=== PATIENT | female | born 2000 | race Hispanic/Latino ===

== ENCOUNTER 2018-01-27 01:57 | Emergency (ER) | payer MEDICAID ==
[2018-01-27] MEDS ORDERED: ACETAMINOPHEN 325 MG TAB ONE (02:54)
[2018-01-27 03:14] LABS: APPEARANCE,URINE Clear (CLEAR); BILIRUBIN,URINE Negative (NEGATIVE); COLOR,URINE Yellow (YELLOW); GLUCOSE, URINE (UA) Negative (NEGATIVE); KETONES,URINE Negative (NEGATIVE); LEUKOCYTE ESTERASE ,URINE Negative (NEGATIVE); NITRATE,URINE Negative (NEGATIVE); OCCULT BLOOD,URINE Negative (NEGATIVE); PROTEIN,URINE Negative (NEGATIVE)
[2018-01-27 03:21] LABS: RAPID GROUP A STREP NEGATIVE (NEGATIVE)
[2018-01-27] MEDS ORDERED: TRAMADOL HCL 50 MG TABLET ONE (03:42)
[2018-01-27 04:15] LABS: CREATININE 0.5 mg/dL (0.5-1.5); POTASSIUM 3.6 mmol/L (3.5-5.1)
[2018-01-27 04:16] LABS: BASOPHILS % (AUTO) 0.2 % (0.0-5.0); EOSINOPHILS % (AUTO) 2.7 % (0.0-8.0); HEMATOCRIT 36.2 % (36-48); LYMPHOCYTES % (AUTO) 32.3 % (21.0-51.0); MEAN CORPUSCULAR HEMOGLOBIN 26.8 pg (27.0-33.0); MEAN CORPUSCULAR VOLUME 78.9 fL (80-100); MONOCYTES % (AUTO) 7.6 % (3.0-13.0); NEUTROPHILS % (AUTO) 57.2 % (40.0-77.0); PLATELET COUNT (AUTO) 463 K/uL (130-400); RED BLOOD CELL COUNT(AUTO) 4.58 MIL/uL (4.00-5.50); RED CELL DISTRIBUTION WIDTH 13.7 % (11.0-15.5); WHITE BLOOD COUNT (AUTO) 16.2 K/uL (4.8-10.8)
[2018-01-27] MEDS ORDERED: KETOROLAC TROMETHAMINE 30MG/ML ONE (05:40)
== END 2018-01-27 06:21 | disposition home or self-care (01) ==
LOC: EDH 01:57
DX: D72.829 Elevated white blood cell count, unspecified (principal); Z87.442 Personal history of urinary calculi
CPT/HCPCS: 36415; 74176; 80048; 81003; 81025; 85025; 87804 ×2; 87880; 96372; 99285; J1885

== ENCOUNTER 2018-10-19 18:00 | Emergency (ER) | payer MEDICAID ==
[2018-10-19 19:00] LABS: BILIRUBIN,URINE Negative (NEGATIVE); COLOR,URINE Yellow (YELLOW); GLUCOSE, URINE (UA) Negative (NEGATIVE); KETONES,URINE Negative (NEGATIVE); LEUKOCYTE ESTERASE ,URINE Negative (NEGATIVE); NITRATE,URINE Negative (NEGATIVE); OCCULT BLOOD,URINE Negative (NEGATIVE); PROTEIN,URINE POS 1+ (NEGATIVE)
[2018-10-19] MEDS ORDERED: ONDANSETRON ODT 4 MG TAB ONE (19:00)
[2018-10-19 19:10] LABS: AMPHET/METH SCREEN,URINE NEGATIVE (NEGATIVE); BARBITURATE SCREEN, URINE NEGATIVE (NEGATIVE); BENZODIAZEPINES SCREEN,URINE NEGATIVE (NEGATIVE); CANNABINOID SCREEN,URINE POSITIVE (NEGATIVE); COCAINE SCREEN,URINE NEGATIVE (NEGATIVE); OPIATE SCREEN,URINE NEGATIVE (NEGATIVE); PHENCYCLIDINE SCREEN,URINE NEGATIVE (NEGATIVE)
[2018-10-19 19:13] LABS: APPEARANCE,URINE SLIGHTLY CLOUDY (CLEAR)
[2018-10-19 19:20] LABS: BACTERIA,URINE Few /HPF (None Seen); MUCUS,URINE Few LPF (None Seen); RBC,URINE 0-1 /HPF (0-1); SQUAMOUS EPITHELIAL CELL,UR Few /HPF (0-2); WBC,URINE 0-1 /HPF (0-1)
== END 2018-10-19 20:09 | disposition home or self-care (01) ==
LOC: EDH 18:00
DX: R11.10 Vomiting, unspecified (principal); F10.99 Alcohol use, unspecified with unspecified alcohol-induced disorder; F32.9 Major depressive disorder, single episode, unspecified
CPT/HCPCS: 80305; 81001; 81025

== ENCOUNTER 2020-10-19 01:54 | Emergency (ER) | payer MEDICAID ==
[2020-10-19] MEDS ORDERED: ONDANSETRON ODT 4 MG TAB ONE (02:54)
[2020-10-19] MEDS ORDERED: LORAZEPAM 2 MG/ML 1 ML VIAL ONE (02:55)
== END 2020-10-19 06:36 | disposition home or self-care (01) ==
LOC: EDH 01:54
DX: F41.0 Panic disorder [episodic paroxysmal anxiety] (principal); F32.9 Major depressive disorder, single episode, unspecified
CPT/HCPCS: 93005; 96372; 99283; J2060

== ENCOUNTER 2020-10-28 23:17 | Emergency (ER) | payer MEDICAID ==
[2020-10-29] MEDS ORDERED: ONDANSETRON 4 MG TABLET ONE (00:32)
[2020-10-29] MEDS ORDERED: PANTOPRAZOLE SODIUM 40 MG TABLET.DR ONE (00:33)
[2020-10-29] MEDS ORDERED: FAMOTIDINE 20MG TAB 20 MG TAB ONE (00:33)
[2020-10-29] MEDS ORDERED: METOCLOPRAMIDE 10 MG TABLET ONE (00:33)
== END 2020-10-29 00:47 | disposition home or self-care (01) ==
LOC: EDH 23:17
DX: F43.0 Acute stress reaction (principal); R11.10 Vomiting, unspecified; F32.9 Major depressive disorder, single episode, unspecified; F41.9 Anxiety disorder, unspecified
CPT/HCPCS: 99284; Q0162

== ENCOUNTER 2021-08-19 16:24 | Emergency (ER) | payer MEDICAID ==
[~2021-08-19] VITALS: Ht 137.2 cm; Wt 78.9 kg
[2021-08-19 16:27] VITALS: BP 128/57
[2021-08-19 17:12] LABS: APPEARANCE,URINE Clear (CLEAR); BILIRUBIN,URINE Negative (NEGATIVE); COLOR,URINE Yellow (YELLOW); GLUCOSE, URINE (UA) Negative (NEGATIVE); KETONES,URINE Negative (NEGATIVE); LEUKOCYTE ESTERASE ,URINE Negative (NEGATIVE); NITRATE,URINE Negative (NEGATIVE); OCCULT BLOOD,URINE Negative (NEGATIVE); PH,URINE 5.5 (5.0-8.0); PROTEIN,URINE Negative (NEGATIVE); UROBILINOGEN,URINE 0.2 mg/dL (0.2-1.0)
[2021-08-19 17:23] LABS: BASOPHILS % (AUTO) 0.2 % (0.0-5.0); EOSINOPHILS % (AUTO) 1.3 % (0.0-8.0); HEMATOCRIT 34.7 % (36-48); LYMPHOCYTES % (AUTO) 24.1 % (21.0-51.0); MEAN CORPUSCULAR HEMOGLOBIN 26.6 pg (27.0-33.0); MEAN CORPUSCULAR HGB CONC 32.9 g/dL (32.0-36.0); MEAN CORPUSCULAR VOLUME 80.9 fL (79-99); MONOCYTES % (AUTO) 6.8 % (3.0-13.0); NEUTROPHILS % (AUTO) 67.1 % (40.0-77.0); PLATELET COUNT (AUTO) 401 K/uL (130-400); RED BLOOD CELL COUNT(AUTO) 4.29 MIL/uL (4.00-5.50); RED CELL DISTRIBUTION WIDTH 14.2 % (11.0-15.5); WHITE BLOOD COUNT (AUTO) 15.4 K/uL (4.8-10.8)
[2021-08-19] MEDS ORDERED: KETOROLAC 30MG VIAL (30MG/ML) IM ONE (17:30)
[2021-08-19 17:48] LABS: CREATININE 0.5 mg/dL (0.5-1.5); POTASSIUM 4.4 mmol/L (3.5-5.1)
[2021-08-19 17:53] LABS: ALBUMIN 3.2 g/dL (3.5-5.0); BILIRUBIN,TOTAL 0.1 mg/dL (0.2-1.0); TOTAL PROTEIN, SERUM 7.2 g/dL (6.0-8.3)
[2021-08-19] MEDS ORDERED: BISA-72 PO (20:00)
[2021-08-19] MEDS ORDERED: CEPH500C2 PO (20:00)
[2021-08-19] MEDS ORDERED: CYCL5TAB PO (20:00)
[2021-08-19] MEDS ORDERED: ACET1TAB25 PO (20:00)
== END 2021-08-19 20:17 | disposition home or self-care (01) ==
LOC: EDH 16:24
DX: N39.0 Urinary tract infection, site not specified (principal); D72.829 Elevated white blood cell count, unspecified; N28.9 Disorder of kidney and ureter, unspecified; K59.00 Constipation, unspecified; Z79.899 Other long term (current) drug therapy; Z79.1 Long term (current) use of non-steroidal anti-inflammatories (NSAID)
CPT/HCPCS: 36415; 71046; 74176; 80053; 81003; 81025; 83690; 85025; 96372; 99285; J1885

== ENCOUNTER 2024-05-26 00:15 | Emergency (ER) | payer MEDICAID ==
[~2024-05-26] VITALS: Ht 137.2 cm; Wt 90.3 kg
[~2024-05-26 00:15] MED LIST: ACET-2079 PO; BISA-72 PO; CEPH500C2 PO; CYCL5TAB PO
[2024-05-26 01:57] LABS: BASOPHILS # (AUTO) 0.04 K/uL (0.00-0.20); BASOPHILS % (AUTO) 0.3 % (0.0-5.0); EOSINOPHILS # (AUTO) 0.18 K/uL (0.00-0.70); EOSINOPHILS % (AUTO) 1.4 % (0.0-8.0); HEMATOCRIT 35.3 % (36-48); IMMATURE GRANULOCYTE ABSOLUTE 0.06 K/uL (0-1); LYMPHOCYTES # (AUTO) 4.7 K/uL (1.0-4.8); LYMPHOCYTES % (AUTO) 36.1 % (21.0-51.0); MEAN CORPUSCULAR HEMOGLOBIN 26.9 pg (27.0-33.0); MEAN CORPUSCULAR HGB CONC 32.6 g/dL (32.0-36.0); MEAN CORPUSCULAR VOLUME 82.7 fL (79-99); MONOCYTES % (AUTO) 7.6 % (3.0-13.0); NEUTROPHILS % (AUTO) 54.1 % (40.0-77.0); PLATELET COUNT (AUTO) 377 K/uL (130-400); RED BLOOD CELL COUNT(AUTO) 4.27 MIL/uL (4.00-5.50); RED CELL DISTRIBUTION WIDTH 15.1 % (11.0-15.5); WHITE BLOOD COUNT (AUTO) 12.9 K/uL (4.8-10.8)
[2024-05-26 02:04] LABS: CREATININE 0.5 mg/dL (0.5-1.0); POTASSIUM 4.3 mmol/L (3.5-5.1)
[2024-05-26 02:43] LABS: APPEARANCE,URINE CLEAR (CLEAR); BILIRUBIN,URINE NEGATIVE (NEGATIVE); COLOR,URINE COLORLESS (YELLOW); GLUCOSE, URINE (UA) NEGATIVE (NEGATIVE); KETONES,URINE NEGATIVE (NEGATIVE); LEUKOCYTE ESTERASE ,URINE NEGATIVE Leu/uL (NEGATIVE); NITRATE,URINE NEGATIVE (NEGATIVE); OCCULT BLOOD,URINE NEGATIVE (NEGATIVE); PH,URINE 7.5 (5.0-8.0); PROTEIN,URINE NEGATIVE (NEGATIVE); UROBILINOGEN,URINE 0.2 mg/dL (0.2-1.0)
[2024-05-26 02:48] LABS: RBC,URINE 0-1 /HPF (0-1); SQUAMOUS EPITHELIAL CELL,UR FEW /HPF (0-2); WBC,URINE 0-1 /HPF (0-1)
[2024-05-26 03:22] VITALS: BP 112/62; PULSE 89; RESP 18; O2SAT 98
== END 2024-05-26 03:24 | disposition home or self-care (01) ==
LOC: EDH 00:15
DX: O20.0 Threatened abortion (principal); Z3A.01 Less than 8 weeks gestation of pregnancy; Z79.899 Other long term (current) drug therapy
CPT/HCPCS: 36415; 76801; 80048; 81001; 84702; 84703; 85025

== ENCOUNTER 2024-06-21 16:28 | Emergency (ER) | payer MEDICAID ==
[~2024-06-21] VITALS: Ht 142.2 cm; Wt 84.5 kg
[2024-06-21 17:45] LABS: BASOPHILS # (AUTO) 0.02 K/uL (0.00-0.20); BASOPHILS % (AUTO) 0.2 % (0.0-5.0); EOSINOPHILS # (AUTO) 0.17 K/uL (0.00-0.70); EOSINOPHILS % (AUTO) 1.3 % (0.0-8.0); HEMATOCRIT 36.3 % (36-48); IMMATURE GRANULOCYTE ABSOLUTE 0.05 K/uL (0-1); LYMPHOCYTES # (AUTO) 3.7 K/uL (1.0-4.8); LYMPHOCYTES % (AUTO) 29.5 % (21.0-51.0); MEAN CORPUSCULAR HEMOGLOBIN 26.5 pg (27.0-33.0); MEAN CORPUSCULAR HGB CONC 33.1 g/dL (32.0-36.0); MEAN CORPUSCULAR VOLUME 80.1 fL (79-99); MONOCYTES % (AUTO) 7.5 % (3.0-13.0); NEUTROPHILS # (AUTO) 7.7 K/uL (1.8-7.7); NEUTROPHILS % (AUTO) 61.1 % (40.0-77.0); PLATELET COUNT (AUTO) 423 K/uL (130-400); RED BLOOD CELL COUNT(AUTO) 4.53 MIL/uL (4.00-5.50); WHITE BLOOD COUNT (AUTO) 12.6 K/uL (4.8-10.8)
[2024-06-21 17:48] LABS: CREATININE 0.5 mg/dL (0.5-1.0); POTASSIUM 3.8 mmol/L (3.5-5.1)
[2024-06-21] MEDS: 0.9%NACL 1000ML 1,000 ML IV ONE (18:00)
[2024-06-21] MEDS: ONDANSETRON 4MG INJ IVP ONE (18:00)
[2024-06-21 19:25] LABS: APPEARANCE,URINE CLOUDY (CLEAR); BILIRUBIN,URINE NEGATIVE (NEGATIVE); COLOR,URINE LIGHT-YELLOW (YELLOW); GLUCOSE, URINE (UA) NEGATIVE (NEGATIVE); KETONES,URINE >=80 mg/dL (NEGATIVE); LEUKOCYTE ESTERASE ,URINE 250 Leu/uL (NEGATIVE); NITRATE,URINE NEGATIVE (NEGATIVE); OCCULT BLOOD,URINE NEGATIVE (NEGATIVE); PH,URINE 6.5 (5.0-8.0); PROTEIN,URINE NEGATIVE (NEGATIVE); UROBILINOGEN,URINE 0.2 mg/dL (0.2-1.0)
[2024-06-21 19:26] LABS: ADD UA MICROSCOPIC YES
[2024-06-21 19:28] LABS: BACTERIA,URINE RARE /HPF (None Seen); MUCUS,URINE RARE LPF (None Seen); SQUAMOUS EPITHELIAL CELL,UR FEW /HPF (0-2)
[2024-06-21] MEDS ORDERED: AMOX1TAB16 PO (19:41)
[2024-06-21] MEDS ORDERED: ONDA-243 PO (19:41)
[2024-06-21] MEDS: AMOX/CLAV 875/125MG TAB PO ONE (20:10)
[2024-06-21 20:18] VITALS: BP 136/81; PULSE 80; RESP 18; TEMP 98.2; O2SAT 100
== END 2024-06-21 20:25 | disposition home or self-care (01) ==
LOC: EDH 16:28
DX: O21.0 Mild hyperemesis gravidarum (principal); O26.891 Other specified pregnancy related conditions, first trimester; E86.0 Dehydration; O23.11 Infections of bladder in pregnancy, first trimester; N30.00 Acute cystitis without hematuria; Z79.2 Long term (current) use of antibiotics; Z79.899 Other long term (current) drug therapy; Z3A.09 9 weeks gestation of pregnancy
CPT/HCPCS: 99283; 96374; 96361; 80048; 85025; 87086; 81001; 36415; J7030; J2405

== ENCOUNTER 2024-07-17 17:57 | Emergency (ER) | payer MEDICAID ==
[~2024-07-17] VITALS: Ht 142.2 cm; Wt 84.4 kg
[~2024-07-17 17:57] MED LIST changes: +AMOX1TAB16 PO; +ONDA-243 PO
[2024-07-17 19:23] LABS: BASOPHILS # (AUTO) 0.03 K/uL (0.00-0.20); BASOPHILS % (AUTO) 0.2 % (0.0-5.0); EOSINOPHILS # (AUTO) 0.27 K/uL (0.00-0.70); EOSINOPHILS % (AUTO) 2.2 % (0.0-8.0); HEMATOCRIT 34.4 % (36-48); IMMATURE GRANULOCYTE ABSOLUTE 0.06 K/uL (0-1); LYMPHOCYTES # (AUTO) 3.2 K/uL (1.0-4.8); LYMPHOCYTES % (AUTO) 25.9 % (21.0-51.0); MEAN CORPUSCULAR HEMOGLOBIN 26.7 pg (27.0-33.0); MEAN CORPUSCULAR HGB CONC 32.8 g/dL (32.0-36.0); MEAN CORPUSCULAR VOLUME 81.3 fL (79-99); MONOCYTES # (AUTO) 0.9 K/uL (0.1-1.0); MONOCYTES % (AUTO) 7.4 % (3.0-13.0); NEUTROPHILS # (AUTO) 7.8 K/uL (1.8-7.7); NEUTROPHILS % (AUTO) 63.8 % (40.0-77.0); PLATELET COUNT (AUTO) 418 K/uL (130-400); RED BLOOD CELL COUNT(AUTO) 4.23 MIL/uL (4.00-5.50); RED CELL DISTRIBUTION WIDTH 14.1 % (11.0-15.5); WHITE BLOOD COUNT (AUTO) 12.2 K/uL (4.8-10.8)
[2024-07-17 19:32] LABS: CREATININE 0.4 mg/dL (0.5-1.0); POTASSIUM 3.5 mmol/L (3.5-5.1)
[2024-07-17 20:49] VITALS: BP 160/80; PULSE 90; RESP 18; TEMP 98.6
== END 2024-07-17 21:32 | disposition home or self-care (01) ==
LOC: EDH 17:57
DX: O26.892 Other specified pregnancy related conditions, second trimester (principal); R10.9 Unspecified abdominal pain; R10.2 Pelvic and perineal pain; Z3A.13 13 weeks gestation of pregnancy; Z79.899 Other long term (current) drug therapy
CPT/HCPCS: 36415; 76801; 80048; 84702; 85025

== ENCOUNTER 2024-10-26 23:25 | Emergency (ER) | payer MEDICAID ==
[~2024-10-26] VITALS: Ht 137.2 cm; Wt 85.7 kg
[~2024-10-26 23:25] MED LIST changes: -CYCL5TAB PO; +CYCL5TAB3 PO
--- NOTE | 2024-10-27 00:11 | ERN ---
ED Note History of Present Illness Stated Complaint: OB Chief Complaint: OB>20 weeks gest. Time Seen by MD: 11:25 Dictation: This is a 24-year-old female who is 27 weeks presented to the emergency room with complaints of decreased movements after she tripped and fell. She describes the event as she got up from the couch she tripped on the shoe and fell down on her hands and knees she did not hit her head and there was no injury to the abdomen. No history of loss of consciousness no blurred vision diplopia motor weakness or seizure activity no obvious facial droop no headache. No vaginal bleeding no syncope or collapse Temperature 98.2 pulse 92 respirations 18 blood pressure 154/70 with a pulse oximetry of 97% Allergies: Coded Allergies: No Known Allergies (Unverified Allergy, Unknown, 08/19/21) Home Meds Active Scripts Ondansetron (Ondansetron Odt) 4 Mg Tab.rapdis, 4 MG PO Q6HPRN PRN for nausea, #16 TAB 0 Refills Prov:EMILY ADAMS NP 06/21/24 Amoxicillin/Potassium Clav (Amox Tr-K Clv 875-125 mg Tab) 875 Mg-125 Mg Tablet, 1 EACH PO BID for 7 Days, #14 TAB 0 Refills Prov:EMILY ADAMS NP 06/21/24 Acetaminophen with Codeine (Acetaminophen-Cod #3 Tablet) 1 Each Tablet, 1 EACH PO BID for 5 Days, #10 TAB Prov:YUNIOR POPE 08/19/21 Cyclobenzaprine HCl (Cyclobenzaprine HCl) 5 Mg Tablet, 5 MG PO DAILYDINNER for 5 Days, #5 TAB Prov:YUNIOR POPE 08/19/21 Bisacodyl (Dulcolax) 5 Mg Tablet.dr, 5 MG PO DAILY for 3 Days, #3 TAB Prov:YUNIOR POPE 08/19/21 Cephalexin (Cephalexin) 500 Mg Capsule, 500 MG PO TID for 10 Days, #30 CAP Prov:YUNIOR POPE 08/19/21 Past Medical History Past Medical History: No Pertinent History Surgical History: None Family History: Negative Social History: Negative LMP: Apr 13, 2024 : 3 Para: 0 Aborts: 2 RN Note Reviewed/Agreed w/PFSH: Yes Review of System Dictation Constitutional: Negative for fever,chills, and weight loss Eyes: Negative for injury, pain,redness, and discharge ENT: Negative for injury,pain or swelling Cardiovascular: Negative for chest pain, palpitations, and edema Respiratory: Negative for shortness of breath, cough, and wheezing, Abdomen/GI: Negative for abdominal pain, nausea, vomiting, diarrhea, and constipation Back: Negative for injury and pain : Negative for injury, bleeding and discharge MS/Extremity: Negative for injury and deformity Skin: Negative for rash, and discoloration Neuro: Negative for headache, weakness, numbness, tingling, and seizure Psych: Negative for suicide ideation, homicidal ideation, and hallucinations Initial Vital Sign VS Vital Signs Date Time Temp Pulse Resp B/P (MAP) Pulse Ox O2 Delivery O2 Flow Rate FiO2 10/26/24 23:27 98.2 92 18 154/70 97 Room Air 0 10/27/24 00:39 21 Physical Exam Dictation General: awake, alert, NAD very short Head/Face: Normocephalic, atraumatic Eyes: PERRL, EOMI, vision at baseline ENT: oral cavity clear, TMs clear, no signs of infection Neck: Trachea midline, supple, no nuchal rigidity Cardiovascular: RRR, normal S1/S2, No MRGs, no JVD Respiratory: CTAB, no respiratory distress, No rales or wheezes Abdomen: Soft, non-tender, non-distended, normal bowel sounds, no guarding or rebound. Gravid uterus above the level of umbilicus, good movements during my exam Skin: Warm, dry, normal turgor, no rash no abrasions, lacerations or ecchymosis MS/Extremity: Pulses equal, no cyanosis, neurovascular intact, FROM Neuro: COAx4, GCS 15, strength 5/5, CN 2-12 intact, normal cerebellar exam, normal gait, Psych: Normal behavior, mood, and affect normal Extremities-trace edema without any palpable cords, Homans sign is negative Results (Laboratory/Radiology) Laboratory/Radiology Laboratory Tests Test 10/26/24 23:58 10/27/24 00:45 Urine Color LIGHT-YELLOW (YELLOW) Urine Appearance CLEAR (CLEAR) Urine pH 6.0 (5.0-8.0) Urine Specific [place] 1.013 (1.001-1.031) Urine Protein NEGATIVE mg/dL (NEGATIVE) Urine Glucose (UA) NEGATIVE mg/dL (NEGATIVE) Urine Ketones NEGATIVE mg/dL (NEGATIVE) Urine Occult Blood NEGATIVE (NEGATIVE) Urine Nitrate NEGATIVE (NEGATIVE) Urine Bilirubin NEGATIVE mg/dL (NEGATIVE) Urine Urobilinogen 0.2 mg/dL (0.2-1.0) Urine Leukocyte Esterase NEGATIVE Flavia/uL White Blood Count 14.0 K/uL (4.8-10.8) H Red Blood Count 4.01 MIL/uL (4.00-5.50) Hemoglobin 10.6 g/dL (12.0-16.0) L Hematocrit 32.4 % (36-48) L Mean Corpuscular Volume 80.8 fL (79-99) Mean Corpuscular Hemoglobin 26.4 pg (27.0-33.0) L Mean Corpuscular Hemoglobin Concent 32.7 g/dL (32.0-36.0) Red Cell Distribution Width 13.6 % (11.0-15.5) Platelet Count 433 K/uL (130-400) H Mean Platelet Volume 9.7 fL (7.5-10.5) Immature Granulocyte % (Auto) 1.3 % (0-1) H Neutrophils (%) (Auto) 69.4 % (40.0-77.0) Lymphocytes (%) (Auto) 19.9 % (21.0-51.0) L Monocytes (%) (Auto) 8.5 % (3.0-13.0) Eosinophils (%) (Auto) 0.7 % (0.0-8.0) Basophils (%) (Auto) 0.2 % (0.0-5.0) Neutrophils # (Auto) 9.7 K/uL (1.8-7.7) H Lymphocytes # (Auto) 2.8 K/uL (1.0-4.8) Monocytes # (Auto) 1.2 K/uL (0.1-1.0) H Eosinophils # (Auto) 0.10 K/uL (0.00-0.70) Basophils # (Auto) 0.03 K/uL (0.00-0.20) Absolute Immature Granulocyte (auto 0.18 K/uL (0-1) Nucleated Red Blood Cells 0.0 % (0.0-0.19) Sodium Level 139 mmol/L (136-145) Potassium Level 3.6 mmol/L (3.5-5.1) Chloride Level 105 mmol/L (101-111) Carbon Dioxide Level 26 mmol/L (21-32) Blood Urea Nitrogen 6 mg/dL (7-18) L Creatinine 0.4 mg/dL (0.5-1.0) L Glomerular Filtration Rate Calc 140 mL/min (>90) Random Glucose 89 mg/dL (70-105) Total Calcium 8.7 mg/dL (8.5-10.1) Labs Reviewed?: Yes Ultrasound Comment: PATIENT: LEIDY CRANE MR#: [id number] : 2000 SEX: F AGE: 24 LOCATION: [facility] ORDER STATUS: REG REPORT#: [id number] SERVICE REASON: patient c/o decreased movements ORDERING PHYSICIAN: LEIGHANN CROWE MD PROCEDURE: OB >14 - US OB >14 WEEKS US OB >14 WEEKS HISTORY: Decreased movement COMPARISON: None TECHNIQUE: ultrasound study was performed. FINDINGS: There is single intrauterine gestation with estimated gestational age of 28 weeks. heart rate is 145 beats per minute. The fetus is in variable presentation with transverse lie. weight is estimated to be 1083 grams. Amniotic fluid volume is 16 centimeter. The placenta is located anteriorly. No evidence of placenta previa is seen. There is no evidence of nuchal cord. IMPRESSION: 1. There is single intrauterine gestation with estimated gestational age of 28 weeks. heart rate is 145 beats per minute. DICTATED BY: MEGAN LANGFORD MD DATE: 10/27/24101 ELECTRONICALLY SIGNED BY: MEGAN LANGFORD MD DATE: 10/27/24104 ED Course ED Course Orders Procedure Category Date Status Time 0.9% Nacl 500ml PHA 10/27/24 Complete Iv.Soln (Ns 500ml 00:30 Us Ob >14 Weeks US 10/27/24 Resulted 00:11 Cbc With Differential LAB 10/27/24 Complete 00:11 Basic Metabolic Panel LAB 10/27/24 Complete 00:11 Urinalysis Profile LAB 10/27/24 Complete 00:11 Current Medications Medications (Trade) Dose Ordered Sig/Robert Route PRN Reason Start Time Stop Time Status Last Admin Dose Admin Sodium Chloride 500 ml @ 0 mls/hr ONCE ONCE IV 10/27/24 00:30 10/27/24 01:38 DC Vital Signs Date Time Temp Pulse Resp B/P (MAP) Pulse Ox O2 Delivery O2 Flow Rate FiO2 10/27/24 01:46 98.1 96 18 115/64 98 Room Air* 0 21 10/27/24 00:39 98.2 98 18 121/61 98 Room Air* 0 21 10/26/24 23:27 98.2 92 18 154/70 97 Room Air 0 We will perform diagnostic labs, advanced imaging and administer medications according to the patient's complaint. Once the results are available, will review and personally interpreted the labs to rule out any acute life-thr eatening emergency the trach require immediate intervention and treatment. I will then re-evaluate the patient after treatment and diagnostic exams have return to determine whether the patient requires any further testing, can safely be discharged home or need further admission to hospital for additional treatment and evaluation. [place] [address] hemoglobin 10.6 platelets 433. Urinalysis is negative for any acute infection. BNP 7 and OB ultrasound are pending at this time BNP 7 was with a normal limits and OB ultrasound showed a viable fetus with good heart rate and movements. I had a long discussion with the patient and spouse and updated them on all the available information and findings and she was satisfied and felt that she is able to feel the movements more and she will be discharged to home to follow up with her Ob. Medical Decision Making MDM MDM: Differential diagnosis: Rationale: Tests considered and ordered secondary to shared decision making include: Previous outside records reviewed: Old ER visits. Risk of complication and/or morbidity or mortality of patient management: None Medications-Per medication reconciliation Need for hospitalization: Patient does not meet criteria for hospitalization. Need for emergency major/minor surgery: No There are no social concerns with this patient. Prescription drug management Prescriptions will include symptomatic care Patient's prior external medical records from other ER visits were reviewed by me as indicated. Prior testing and results from previous visits were reviewed. Prior tests were taken into account with medical decision making and resource utilization, independent historian/historians were used to obtain complete medical history. I independently interpreted the test that were performed, results were reviewed by me and considered findings on radiology if ordered. Medical management and examination interpretation discussions were had by me with other qualified healthcare professionals as indicated for the patient's care. Problem List Problem List: (1) (2) Decreased movement during , antepartum (3) Fall DX & DISP Disposition: Discharge Departure Impression: Primary Impression: Additional Impressions: Fall, Decreased movement during , antepartum Condition: Stable Additional Instructions: Patient and the caregiver have been informed of all the diagnostic tests and the imaging conducted during the today's visit to the emergency room and has verbalized understanding of the results I have personally reviewed and interpreted all diagnostic exams performed here in the ER today as well as the vital signs documented by the nursing staff. The patient is now being discharged to home and should follow up with the primary care physician or the specialist as directed by the ER staff. Follow-up with primary care provider in 1 to 2 days. Take medications as directed here in the emergency room. Okay to continue home medications unless otherwise discussed during your visit in the emergency room today. Return to your nearest emergency room if symptoms worsen or if there is no improvement. Call 911 if you need immediate assistance. Take Tylenol or Motrin [id number] as needed and if no contraindications are present. Increase oral hydration. A wound culture or urine culture was ordered here in the emergency room department please follow-up with primary care provider and advise them to get repeat ports from our facility. If you had any Julio Cesar wrap/splints that were applied here, please do not remove them until you see your primary care or specialty. Patient instructed to follow up with her mate ship in the next 48 hours Referrals: YOLY GAN (PCP) LEIGHANN CROWE MD Oct 27, 2024 00:11
[2024-10-27] MEDS ORDERED: 0.9% NACL 500ML IV.SOLN 500 ML IV ONE (00:30)
[2024-10-27 00:32] LABS: APPEARANCE,URINE CLEAR (CLEAR); BILIRUBIN,URINE NEGATIVE (NEGATIVE); COLOR,URINE LIGHT-YELLOW (YELLOW); GLUCOSE, URINE (UA) NEGATIVE (NEGATIVE); KETONES,URINE NEGATIVE (NEGATIVE); LEUKOCYTE ESTERASE ,URINE NEGATIVE Leu/uL (NEGATIVE); NITRATE,URINE NEGATIVE (NEGATIVE); OCCULT BLOOD,URINE NEGATIVE (NEGATIVE); PROTEIN,URINE NEGATIVE (NEGATIVE); UROBILINOGEN,URINE 0.2 mg/dL (0.2-1.0)
[2024-10-27 00:33] LABS: ADD UA MICROSCOPIC NO
[2024-10-27 00:54] LABS: BASOPHILS # (AUTO) 0.03 K/uL (0.00-0.20); BASOPHILS % (AUTO) 0.2 % (0.0-5.0); EOSINOPHILS % (AUTO) 0.7 % (0.0-8.0); HEMATOCRIT 32.4 % (36-48); IMMATURE GRANULOCYTE ABSOLUTE 0.18 K/uL (0-1); LYMPHOCYTES # (AUTO) 2.8 K/uL (1.0-4.8); LYMPHOCYTES % (AUTO) 19.9 % (21.0-51.0); MEAN CORPUSCULAR HEMOGLOBIN 26.4 pg (27.0-33.0); MEAN CORPUSCULAR HGB CONC 32.7 g/dL (32.0-36.0); MEAN CORPUSCULAR VOLUME 80.8 fL (79-99); MONOCYTES # (AUTO) 1.2 K/uL (0.1-1.0); MONOCYTES % (AUTO) 8.5 % (3.0-13.0); NEUTROPHILS # (AUTO) 9.7 K/uL (1.8-7.7); NEUTROPHILS % (AUTO) 69.4 % (40.0-77.0); PLATELET COUNT (AUTO) 433 K/uL (130-400); RED BLOOD CELL COUNT(AUTO) 4.01 MIL/uL (4.00-5.50); RED CELL DISTRIBUTION WIDTH 13.6 % (11.0-15.5)
[2024-10-27 01:01] LABS: CREATININE 0.4 mg/dL (0.5-1.0); POTASSIUM 3.6 mmol/L (3.5-5.1)
--- NOTE | 2024-10-27 01:05 | HMCIMG ---
US OB >14 WEEKS HISTORY: Decreased movement COMPARISON: None TECHNIQUE: ultrasound study was performed. FINDINGS: There is single intrauterine gestation with estimated gestational age of 28 weeks. heart rate is 145 beats per minute. The fetus is in variable presentation with transverse lie. weight is estimated to be 1083 grams. Amniotic fluid volume is 16 centimeter. The placenta is located anteriorly. No evidence of placenta previa is seen. There is no evidence of nuchal cord. IMPRESSION: 1. There is single intrauterine gestation with estimated gestational age of 28 weeks. heart rate is 145 beats per minute.
[2024-10-27 01:46] VITALS: BP 115/64; PULSE 96; RESP 18; TEMP 98; O2SAT 98
== END 2024-10-27 01:49 | disposition home or self-care (01) ==
LOC: EDH 23:25
DX: O36.8130 Decreased fetal movements, third trimester, not applicable or unspecified (principal); Z3A.28 28 weeks gestation of pregnancy; Z79.899 Other long term (current) drug therapy; W01.0XXA Fall on same level from slipping, tripping and stumbling without subsequent striking against object, initial encounter; Y93.89 Activity, other specified; Y92.89 Other specified places as the place of occurrence of the external cause; Y99.8 Other external cause status
CPT/HCPCS: 36415; 76805; 80048; 81003; 85025; 99284